=== PATIENT | male | born 1975 ===

== ENCOUNTER 2017-10-02 09:46 | Emergency (ER) | payer OTHER ==
[2017-10-02 10:13] VITALS: BP 124/82; PULSE 78; RESP 16; TEMP 98.1; O2SAT 96
--- NOTE | 2017-10-02 10:34 | C.PDOC ---
History Of Present Illness 42 y/o male presents to the ER complaining of left-sided paraspinal back pain. Patient states that he was lifting weights yesterday.Patient reports that he took Motrin and and muscle relaxers last night and Motrin in the morning today. Time Seen by Provider: 10/02/17 10:05 Chief Complaint (Nursing): Back Pain History Per: Patient History/Exam Limitations: no limitations Onset/Duration Of Symptoms: Hrs Current Symptoms Are (Timing): Still Present Severity: Moderate Past Medical History Reviewed: Historical Data, Nursing Documentation, Vital Signs Vital Signs: Last Vital Signs Temp 98.1 F 10/02/17 10:09 Pulse 78 10/02/17 10:09 Resp 16 10/02/17 10:09 BP 124/82 10/02/17 10:09 Pulse Ox 96 10/02/17 10:38 - Medical History PMH: Hypothyroidism Other Surgeries: Hx of surgeries Family History: States: No Known Family Hx - Social History Hx Alcohol Use: Yes Hx Substance Use: No - Immunization History Hx Tetanus Toxoid Vaccination: No Hx Influenza Vaccination: No Hx Pneumococcal Vaccination: No Review Of Systems Except As Marked, All Systems Reviewed And Found Negative. Constitutional: Negative for: Fever, Chills Genitourinary: Negative for: Dysuria, Hematuria Musculoskeletal: Positive for: Back Pain Physical Exam - Physical Exam Appears: Non-toxic, No Acute Distress Skin: Normal Color, Warm, Dry Head: Atraumatic, Normacephalic Eye(s): bilateral: Normal Inspection Nose: Normal Oral Mucosa: Moist Neck: Supple Chest: Symmetrical Cardiovascular: Rhythm Regular Respiratory: Normal Breath Sounds, No Rales, No Rhonchi, No Wheezing Back: Paraspinal Tenderness (left-sided paraspinal tenderness ), Other ( swelling to left paraspinal region) Neurological/Psych: Oriented x3, Normal Speech ED Course And Treatment O2 Sat by Pulse Oximetry: 96 (RA) Pulse Ox Interpretation: Normal Progress Note: Toradol IM, Ultram PO Medical Decision Making Medical Decision Making: lumbar parasternal muscle strain no spinal involvment better with ED tx Disposition Doctor Will See Patient In The: Office Counseled Patient/Family Regarding: Studies Performed, Diagnosis - Disposition Disposition: HOME/ ROUTINE Disposition Time: 10:59 Condition: GOOD Forms: [facility] (Ecuadorean) - Clinical Impression Clinical Impression: Low back strain - Scribe Statement Angel Newton Provider Attestation: All medical record entries made by the Scribe were at my direction and personally dictated by me. I have reviewed the chart and agree that the record accurately reflects my personal performance of the history, physical exam, medical decision making, and the department course for this patient. I have also personally directed, reviewed, and agree with the discharge instructions and disposition.
== END 2017-10-02 11:05 | disposition home or self-care (01) ==
LOC: C.ER 09:46
DX: S39.012A Strain of muscle, fascia and tendon of lower back, initial encounter (principal); X50.0XXA Overexertion from strenuous movement or load, initial encounter; Y93.B3 Activity, free weights; Y92.89 Other specified places as the place of occurrence of the external cause
CPT/HCPCS: 96372; 99284; J1885